=== PATIENT | male | born 1990 | race Hispanic/Latino ===

== ENCOUNTER 2018-03-10 05:13 | Emergency (ER) | payer OTHER ==
[2018-03-10 05:23] VITALS: BP 140/77; PULSE 60; RESP 16; TEMP 98.1; O2SAT 99
--- NOTE | 2018-03-10 05:42 | ED PDOC ---
HPI: Skin/Bite Injury Time Seen by Provider: 03/10/18 05:27 Chief Complaint (Nursing): Finger,Hand,&Wrist Past Medical History Vital Signs: Last Vital Signs Temp 98.1 F 03/10/18 05:19 Pulse 60 03/10/18 05:19 Resp 16 03/10/18 05:19 BP 140/77 03/10/18 05:19 Pulse Ox 99 03/10/18 05:19 - Home Medications Home Medications: Ambulatory Orders Medication Instructions Recorded Cephalexin [Keflex] 500 mg PO BID #14 capsule 03/10/18 - Allergies Allergies/Adverse Reactions: Allergies Allergy/AdvReac Type Severity Reaction Status Date / Time levofloxacin [From Levaquin] Allergy RASH Verified 03/10/18 05:22 - ECG O2 Sat by Pulse Oximetry: 99 Medical Decision Making Medical Decision Making: No drain-able fluid collection at this time. Discussed warm soaks and antibiotics. Disposition - Clinical Impression Clinical Impression: Paronychia - Disposition Disposition: Routine/Home Disposition Time: 05:38 Condition: STABLE Additional Instructions: Warm soaks. Motrin for pain. Prescriptions: Cephalexin [Keflex] 500 mg PO BID #14 capsule Instructions: Paronychia (DC)
== END 2018-03-10 06:00 | disposition home or self-care (01) ==
LOC: H.ER 05:13
DX: L03.019 Cellulitis of unspecified finger (principal)